=== PATIENT | male | born 1980 | race Caucasian/White ===

== ENCOUNTER → 2017-12-22 16:21 | Outpatient (CLI) | payer BC | END | disposition home or self-care (01) | LOC: D.US 16:21 | DX: M79.605 Pain in left leg (principal) ==

== ENCOUNTER → 2019-09-13 08:01 | Outpatient (CLI) | payer BC | END | disposition home or self-care (01) | LOC: D.NM 08:00 | PROVIDERS: ATTEND Clinical Nurse Specialist Adult Health | DX: R10.9 Unspecified abdominal pain (principal) ==